=== PATIENT | female | born 1955 | race Caucasian/White ===

== ENCOUNTER 2020-07-27 10:29 | Outpatient (REF) | payer OTHER, SELFPAY ==
[2020-07-27 11:28] LABS: COVID-19 Test Negative (Negative); IDNOW Serial# 55D5AD1C
== END 2020-07-27 10:30 | disposition home or self-care (01) ==
LOC: HO.EMPCOV 10:29
PROVIDERS: Visit Provider Internal Medicine
DX: Z20.828 Contact with and (suspected) exposure to other viral communicable diseases (principal)
CPT/HCPCS: 87635; C9803

== ENCOUNTER → 2021-09-21 15:19 | Outpatient (BNVA) | payer OTHER, SELFPAY | PROVIDERS: Visit Provider Physician Assistant | DX: Z13.89 Encounter for screening for other disorder (principal) | CPT/HCPCS: 36415; 84450; 84460; 86706; 86803; 87389; 99203 ==

== ENCOUNTER 2023-08-08 08:34 | Outpatient (AMB) | payer OTHER, SELFPAY ==
--- NOTE | 2023-08-08 09:29 | MHC.OFFWIV ---
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 She was walking yesterday during her lunch break and rolled left foot off the edge of a ramp. Pain increased overnight last night despite elevating, icing, and wrapping with compression wrap. She has been wearing an old walking boot she had from a previous injury. Pain is primarily on the top of her foot. COUNTS INCLUDE 234 BEDS AT THE [facility] Social History Patient Tobacco Use Status: Never used Tobacco Review of Systems Const All systems reviewed & are unremarkable except as noted in HPI and below Physical Exam Vital Signs: Last Vital Signs Temp 97.9 F 08/08/23 09:38 Pulse 71 08/08/23 09:38 BP 132/80 08/08/23 09:38 Pulse Ox 97 08/08/23 09:38 Oxygen Delivery Method Room Air 08/08/23 09:38 Const General: cooperative and no acute distress Resp Effort & Inspection: normal respiratory effort Skin General skin exam: no rashes or lesions noted Extrem Left lower extremity: foot Details: normal capillary refill, normal to inspection, tenderness Location: of the dorsal foot Location: proximally, toes with normal ROM, no edema and vascular exam Details: dorsalis pedis pulse present and posterior tibial pulse present Ankle/foot/toe images: 1. pain Psych Appearance: grossly normal Mental Status: mental status grossly normal Speech and movement: Normal speech and movement present Assessment & Plan Assessment & Plan (1) Left foot pain: Code(s): M79.672 - Pain in left foot Plan: Dorsal left foot pain s/p rolling injury yesterday. XR obtained in the office does not reveal any fracture or subluxation.. Patient declines any medication for her injury. She states she will continue utilizing Advil/Tylenol prn. She can also continue to ice, elevate, and apply compression wrap for comfort. If she does not improve with time and conservative measures, she can return to the clinic for further evaluation. She agrees to plan. 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 Coding Level of Care Code Est Pt Level 3 (71929) Diagnoses Left foot pain M79.672
[2023-08-08 09:38] VITALS: BP 132/80; PULSE 71; TEMP 36.6; O2SAT 97
== END 2023-08-08 10:37 | disposition home or self-care (01) ==
PROVIDERS: Visit Provider Nurse Practitioner Family
DX: M79.672 Pain in left foot (principal)
CPT/HCPCS: 99213

== ENCOUNTER 2023-08-08 10:07 | Outpatient (REF) | payer OTHER, SELFPAY ==
--- NOTE | ~2023-08-08 | XR_ITS ---
EXAMINATION: XR FOOT, LEFT CLINICAL INFORMATION: Old left foot, pain on dorsum of foot COMPARISON: None available. TECHNIQUE: AP, lateral, and oblique views of the left foot. FINDINGS: The bones and soft tissues are normal. No fracture. Alignment is anatomic. Joint spaces are maintained. Hallux valgus is noted. XR/XR foot LT min 3V IMPRESSION: No acute fracture or subluxation.
== END 2023-08-08 10:08 | disposition home or self-care (01) ==
LOC: HO.HMGCX 10:07
PROVIDERS: PCP Nurse Practitioner Adult Health; Visit Provider Nurse Practitioner Family
DX: M79.672 Pain in left foot (principal)
CPT/HCPCS: 73630